=== PATIENT | male | born 1970 | race Caucasian/White ===

== ENCOUNTER 2021-01-08 18:13 | Emergency (ER) | payer BC ==
[~2021-01-08] VITALS: Ht 182.9 cm; Wt 106.6 kg
[2021-01-08 18:13] VITALS: BP 140/99
[~2021-01-08 18:13] MED LIST: BUSP10TA35 PO; CITA40TA22 PO; CLON1TAB PO; GABA600T PO; QUET25TA PO; QUET50TA PO
[2021-01-08 18:45] LABS: BASOPHILS % (AUTO) 0.7 % (0.0-2.0); EOSINOPHILS % (AUTO) 1.9 % (0.0-6.0); HEMATOCRIT 49 % (39-51); HEMOGLOBIN 16.1 g/dL (13.5-17.5); LYMPHOCYTES # (AUTO) 1.6 /CMM (0.8-4.8); LYMPHOCYTES % (AUTO) 29.2 % (20.0-44.0); MEAN CORPUSCULAR HGB CONC 33 g/dl (31.0-36.0); MEAN CORPUSCULAR VOLUME 92 fL (80-96); MONOCYTES # (AUTO) 0.4 /CMM (0.1-1.30); MONOCYTES % (AUTO) 6.5 % (2.0-12.0); NEUTROPHILS # (AUTO) 3.4 /CMM (1.8-8.9); NEUTROPHILS % (AUTO) 61.7 % (43.0-81.0); PLATELET COUNT (AUTO) 210 /CMM (150-450); WHITE BLOOD COUNT (AUTO) 5.6 K/uL (4.3-11.0)
[2021-01-08 18:53] LABS: CALCIUM, SERUM 8.9 mg/dL (8.5-10.1); POTASSIUM 3.9 mmol/L (3.5-5.1)
[2021-01-08] MEDS ORDERED: HYDR25SU33 RC (18:58)
== END 2021-01-08 19:16 | disposition home or self-care (01) ==
LOC: ER 18:19
DX: K62.5 Hemorrhage of anus and rectum (principal); F41.9 Anxiety disorder, unspecified; Z98.890 Other specified postprocedural states; Z60.2 Problems related to living alone; Z79.899 Other long term (current) drug therapy
CPT/HCPCS: 36415; 80048-TC; 85025-TC

== ENCOUNTER 2022-12-07 11:37 | Emergency (ER) | payer BC ==
[~2022-12-07] VITALS: Ht 185.4 cm; Wt 98.0 kg
[~2022-12-07 11:37] MED LIST changes: +HYDR25SU33 RC
--- NOTE | 2022-12-07 11:45 | NUR ---
AT [facility] JOEL SCHERER
--- NOTE | 2022-12-07 11:50 | NUR ---
PT BIBS IN BED 6, A/OX 4 BREATHING IS EVEN AND UNLABORED STEADY GAIT. C/O ERRECTION SINCE 07:30 MD AWARE OF CONDITION. PT STATES THAT HE TOOK TRAZADONE 400MG LAST NIGHT BECAUSE HE WAS FEELING LIKE HE NEEDED "REALLY GOOD REST" ALSO IS TAKING TADALAFIL (CIALIS)
[2022-12-07] MEDS ORDERED: LIDOCAINE 1% INJ 50 ML MDV IJ ONE ×2 (12:18→12:30)
[2022-12-07] MEDS ORDERED: TERBUTALINE SULFATE 1 MG/ML VIAL ONE (12:20)
[2022-12-07] MEDS ORDERED: PHENYLEPHRINE 10 MG/ML VIAL ONE (12:20)
[2022-12-07] MEDS ORDERED: TERBUTALINE SULFATE 1 MG/ML VIAL SQ ONE (12:30)
[2022-12-07] MEDS ORDERED: PHENYLEPHRINE 10 MG/ML VIAL IV ONE (12:30)
[2022-12-07] MEDS ORDERED: PHENYLEPHRINE 10 MG/ML VIAL IJ ONE (12:30)
[2022-12-07 16:49] VITALS: BP 128/62
== END 2022-12-07 16:50 | disposition home or self-care (01) ==
LOC: ER 11:38
DX: N48.33 Priapism, drug-induced (principal); T46.7X5A Adverse effect of peripheral vasodilators, initial encounter; F41.9 Anxiety disorder, unspecified; Z60.2 Problems related to living alone; Z79.899 Other long term (current) drug therapy; Y92.89 Other specified places as the place of occurrence of the external cause
CPT/HCPCS: 99284; 54220; J3490; J2370; J3105